=== PATIENT | female | born 1965 | race Caucasian/White ===

== ENCOUNTER → 2016-12-13 | Outpatient (CLI) | payer BC, OTHER ==
[2004-10-30 04:41] VITALS: PULSE 97; TEMP 98
== END ==
LOC: MC.RAD 15:18
DX: Z12.31 Encounter for screening mammogram for malignant neoplasm of breast (principal)

== ENCOUNTER → 2018-01-02 | Outpatient (CLI) | payer BC, OTHER ==
[2004-10-30 04:41] VITALS: PULSE 97; TEMP 98
== END ==
LOC: MC.RAD 11:09
DX: Z12.31 Encounter for screening mammogram for malignant neoplasm of breast (principal)

== ENCOUNTER → 2018-12-30 | Outpatient (CLI) | payer BC, OTHER ==
[2004-10-30 04:41] VITALS: PULSE 97; TEMP 98
== END ==
LOC: MC.RAD 16:09
DX: Z12.31 Encounter for screening mammogram for malignant neoplasm of breast (principal); Z98.82 Breast implant status

== ENCOUNTER → 2020-01-28 | Outpatient (CLI) | payer BC, OTHER ==
[2004-10-30 04:41] VITALS: PULSE 97; TEMP 98
== END ==
LOC: MC.RAD 13:46
DX: Z12.31 Encounter for screening mammogram for malignant neoplasm of breast (principal)

== ENCOUNTER → 2021-03-10 | Outpatient (CLI) | payer BC, OTHER ==
[2004-10-30 04:41] VITALS: PULSE 97; TEMP 98
[~2021-03-10] MED LIST: ALDACTONE 25MG25 M1 PO; BENICAR HCT 12.1 TA1 PO; MOTRIN 800800 MG/TAB PO; PERCOCET 325 MG1 TA2 PO
== END ==
LOC: MC.RAD 08:25
DX: Z12.31 Encounter for screening mammogram for malignant neoplasm of breast (principal)

== ENCOUNTER 2021-05-23 08:36 | Day surgery (SDC) | payer BC, OTHER ==
[2021-05-23] VITALS (12 sets, daily range): BP systolic 117–142; BP diastolic 53–78; PULSE 65–99; TEMP 97.4–98.2
[~2021-05-23] VITALS: Ht 170.2 cm; Wt 97.4 kg
[2021-05-23] MEDS ORDERED: BENICAR HCT 12.1 TA1 PO (09:31)
[2021-05-23] MEDS ORDERED: ALDACTONE 25MG25 M1 PO (10:31)
[2021-05-23] MEDS ORDERED: MOTRIN 800800 MG/TAB PO (11:19)
[2021-05-23] MEDS ORDERED: PERCOCET 325 MG1 TA2 PO (11:19)
--- NOTE | 2021-05-23 15:50 | NUR ---
Admits to room 220, post surgery, per bed @ this time. Patient c/o pain on right side, rating pain "2" of 10. Denies any need for pain medication at this time. Patient reports her spouse is driving a bus route at this time, will be here after.
[2021-05-24] VITALS: BP 114/67; PULSE 92; TEMP 98.8
[2021-05-24 04:00] VITALS: BP 109/54; PULSE 86; TEMP 98.6
[2021-05-24 08:00] VITALS: BP 137/53; PULSE 72; TEMP 98.3
--- NOTE | 2021-05-24 12:35 | NUR ---
Discharge instructions and follow up care reviewed with pt and at the bedside. Both verbalized an understanding, agreed with the plan and states no questions or concerns at this time. Pt escorted off unit via wheelchair escorted by staff and discharge home via private vehicle.
== END 2021-05-24 12:40 | disposition home or self-care (01) ==
LOC: SDCO 08:36 → OB 15:50 → SDCO 05-24 12:40
PROVIDERS: Obstetrics & Gynecology
DX: N92.0 Excessive and frequent menstruation with regular cycle (principal); D25.9 Leiomyoma of uterus, unspecified; N83.202 Unspecified ovarian cyst, left side; N83.312 Acquired atrophy of left ovary; E28.8 Other ovarian dysfunction; N84.1 Polyp of cervix uteri; K43.2 Incisional hernia without obstruction or gangrene; Z20.822 Contact with and (suspected) exposure to COVID-19; J30.9 Allergic rhinitis, unspecified; I10 Essential (primary) hypertension; E66.9 Obesity, unspecified; Z68.33 Body mass index [BMI] 33.0-33.9, adult; Z79.899 Other long term (current) drug therapy
CPT/HCPCS: OP; A4314; C1781; J0330; J1100; J1885; J2405; J2704; J2710; J3010; J7120

== ENCOUNTER → 2022-04-04 | Outpatient (CLI) | payer BC, OTHER | LOC: MC.RAD 10:02 | DX: Z12.31 Encounter for screening mammogram for malignant neoplasm of breast (principal) ==

== ENCOUNTER → 2024-03-04 | Outpatient (CLI) | payer BC, OTHER | LOC: MC.RAD 10:09 | DX: Z12.31 Encounter for screening mammogram for malignant neoplasm of breast (principal) ==